=== PATIENT | male | born 1955 | race Caucasian/White ===

== ENCOUNTER 2018-03-05 19:04 | Inpatient (IN) | payer OTHER, MEDICAID ==
[~2018-03-05] VITALS: Ht 170.2 cm; Wt 89.8 kg
[2018-03-05 19:12] VITALS: BP 183/79
[2018-03-05] MEDS ORDERED: NACL 0.9% 1,000 ML IV ONE (19:45)
[2018-03-05] MEDS ORDERED: INSULIN REGULAR, HUMAN 100 UNIT/ML VIAL SUBQ ONE (19:45)
[2018-03-05 20:15] LABS: BASOPHILS # (AUTO) 0.1 K/uL (0.00-0.22); BASOPHILS % (AUTO) 0.5 % (0.0-2.0); EOSINOPHILS # (AUTO) 0.3 K/uL (0-0.4); EOSINOPHILS % (AUTO) 2.6 % (0.0-4.0); HEMATOCRIT 33.8 % (36-52); HEMOGLOBIN 10.9 g/dL (12.0-18.0); LYMPHOCYTES # (AUTO) 1.3 K/uL (2.0-11.5); LYMPHOCYTES % (AUTO) 12.3 % (20.5-51.1); MEAN CORPUSCULAR HEMOGLOBIN 26 pg (27-31); MEAN CORPUSCULAR HGB CONC 32 g/dL (33-37); MEAN CORPUSCULAR VOLUME 80.9 fL (80-94); MONOCYTES # (AUTO) 1.4 K/uL (0.8-1.0); MONOCYTES % (AUTO) 13.8 % (1.7-9.3); NEUTROPHILS # (AUTO) 7.4 K/uL (1.8-7.7); NEUTROPHILS % (AUTO) 70.8 % (42.2-75.2); PLATELET COUNT (AUTO) 192 K/uL (140-450); RED BLOOD CELL COUNT(AUTO) 4.17 MIL/uL (4.20-6.10); RED CELL DISTRIBUTION WIDTH 16.6 % (11.6-13.7); WHITE BLOOD COUNT (AUTO) 10.4 K/uL (4.8-10.8)
[2018-03-05 20:27] LABS: ACETONE, SERUM NEGATIVE (NEGATIVE)
[2018-03-05 20:33] LABS: APPEARANCE,URINE CLEAR (CLEAR); COLOR,URINE YELLOW (YELLOW); PH,URINE 5.5 (5.0-9.0)
[2018-03-05 20:34] LABS: BILIRUBIN,URINE NEGATIVE (NEGATIVE); BLOOD, URINE 2+ (NEGATIVE); LEUKOCYTE ESTERASE ,URINE NEGATIVE (NEGATIVE); NITRITE, URINE NEGATIVE (NEGATIVE); UGLUCOSE 3+ (NEGATIVE)
[2018-03-05 20:44] LABS: CHLORIDE 96 mmol/L (98-107); POTASSIUM 4.5 mmol/L (3.5-5.1); SODIUM SERUM 130 mmol/L (136-145)
[2018-03-05 20:45] LABS: ANION GAP 17.2 (8-16); CARBON DIOXIDE 21.3 mmol/L (21-32)
[2018-03-05] MEDS ORDERED: MORPHINE SULFATE 4 MG/ML SYR IVP ONE (20:45)
[2018-03-05 20:47] LABS: ASPARTATE AMINOTRANSFERASE 12 U/L (15-37); CREATININE 1.8 mg/dL (0.7-1.3); GFR ARICAN-AMERICAN 50 mL/min (>90); GLUCOSE 594 mg/dL (74-106); TOTAL BILIRUBIN 0.4 mg/dL (0.0-1.0); UREA NITROGEN, BLOOD 34 mg/dL (7-18)
[2018-03-05 20:48] LABS: ALBUMIN 3.3 g/dL (3.4-5.0)
[2018-03-05 20:58] LABS: RBC,URINE 3-10 (FEW) /HPF (0-5); WBC,URINE 0-5 (RARE) /HPF (0-5)
[2018-03-05] MEDS ORDERED: INSULIN REGULAR, HUMAN 100 UNIT/ML VIAL SUBQ SCH (21:10)
[2018-03-05] MEDS: NACL 0.9% 1,000 ML IV SCH (22:29)
[2018-03-05] MEDS ORDERED: LORazepam 2 MG/ML VIAL IM/IVP PRN (22:30)
[2018-03-05] MEDS ORDERED: ONDANSETRON 4 MG/2 ML VIAL IM/IVP PRN (22:30)
[2018-03-05] MEDS ORDERED: MORPHINE SULFATE 4 MG/ML SYR IVP PRN (22:30)
[2018-03-05] MEDS ORDERED: ACETAMINOPHEN 325 MG TAB PO PRN (22:30)
[2018-03-05] MEDS ORDERED: DOCUSATE SODIUM 100 MG GELCAP PO PRN (22:30)
[2018-03-05] MEDS ORDERED: ZOLPIDEM 5 MG TAB PO PRN (22:30)
[2018-03-05] MEDS ORDERED: WARF2.5T77 PO (22:32)
[2018-03-05] MEDS ORDERED: METF500T2 PO (22:32)
[2018-03-05] MEDS ORDERED: GLIP5TAB4 PO (22:32)
[2018-03-05] MEDS ORDERED: CHOL300T PO (22:32)
[2018-03-05] MEDS ORDERED: AMLO10TA3 PO (22:32)
[2018-03-05] MEDS ORDERED: LISI30TA6 PO (22:32)
[2018-03-05] MEDS ORDERED: WARF-18 PO (22:32)
[2018-03-05] MEDS ORDERED: AMOX500C25 PO (22:32)
[2018-03-05] MEDS ORDERED: TRA200 PO (22:32)
[2018-03-05] MEDS ORDERED: ASPI81EC97 PO (22:32)
[2018-03-05] MEDS ORDERED: CLON0.2T43 PO (22:32)
[2018-03-05] MEDS ORDERED: FURO-570 PO (22:32)
[2018-03-05] MEDS ORDERED: ECHI1CAP PO (22:32)
[2018-03-05] MEDS ORDERED: DEXTROSE 50% 50 ML SYR IVP PRN (22:35)
[2018-03-05] MEDS ORDERED: ENALAPRILAT 2.5 MG/2 ML VIAL IVP SCH (23:25)
[2018-03-05 23:52] LABS: BARBITURATE, URINE NEGATIVE ng/ml (NEG <=200)
[2018-03-05 23:53] LABS: BENZODIAZEPINE, URINE NEGATIVE ng/mL (NEG <=200); CANNABINOID, URINE NEGATIVE ng/mL (NEG <=50); COCAINE, URINE NEGATIVE ng/mL (NEG <=300); OPIATE, URINE NEGATIVE ng/mL (NEG <=2000); PHENCYCLIDINE SCREEN,URINE NEGATIVE ng/mL (NEG <=25)
[2018-03-05] MEDS: HYDROcodone/APAP 5/325 MG 1 TAB TAB PO PRN (23:53)
[2018-03-06] VITALS: BP 176/82
[2018-03-06 01:29] LABS: MAGNESIUM 1.9 mg/dL (1.8-2.4); PHOSPHORUS 3.1 mg/dL (2.5-4.9)
[2018-03-06 01:30] LABS: FREE T4 (FREE THYROXINE) 1.45 ng/dL (0.76-1.46); THYROID STIMULATING HORMONE 0.58 uIU/mL (0.34-3.74)
[2018-03-06] MEDS ORDERED: FURO-570 PO (03:55)
[2018-03-06] MEDS ORDERED: LISI30TA6 PO (03:55)
[2018-03-06] MEDS ORDERED: ASPI81EC97 PO (03:55)
[2018-03-06] MEDS ORDERED: TRA200 PO (03:55)
[2018-03-06] MEDS ORDERED: AMLO10TA3 PO (03:55)
[2018-03-06] MEDS ORDERED: GLIP5TAB4 PO (03:55)
[2018-03-06] MEDS ORDERED: INSU100S22 SUBQ (03:55)
[2018-03-06] MEDS ORDERED: CLON0.2T43 PO (03:55)
[2018-03-06] MEDS: NACL 0.9% 1,000 ML IV SCH ×2 (05:53→15:49)
[2018-03-06] MEDS: BLOOD GLUCOSE MONITORING 1 DEV DEV FS SCH ×4 (05:55→21:55)
[2018-03-06 07:13] LABS: BASOPHILS # (AUTO) 0.1 K/uL (0.00-0.22); BASOPHILS % (AUTO) 0.6 % (0.0-2.0); EOSINOPHILS # (AUTO) 0.5 K/uL (0-0.4); EOSINOPHILS % (AUTO) 5.3 % (0.0-4.0); HEMATOCRIT 32.7 % (36-52); HEMOGLOBIN 10.6 g/dL (12.0-18.0); LYMPHOCYTES # (AUTO) 1.6 K/uL (2.0-11.5); LYMPHOCYTES % (AUTO) 17.1 % (20.5-51.1); MEAN CORPUSCULAR HEMOGLOBIN 26 pg (27-31); MEAN CORPUSCULAR HGB CONC 32 g/dL (33-37); MEAN CORPUSCULAR VOLUME 80.7 fL (80-94); MONOCYTES # (AUTO) 1.3 K/uL (0.8-1.0); MONOCYTES % (AUTO) 13.5 % (1.7-9.3); NEUTROPHILS # (AUTO) 5.9 K/uL (1.8-7.7); NEUTROPHILS % (AUTO) 63.5 % (42.2-75.2); PLATELET COUNT (AUTO) 180 K/uL (140-450); RED BLOOD CELL COUNT(AUTO) 4.05 MIL/uL (4.20-6.10); RED CELL DISTRIBUTION WIDTH 15.8 % (11.6-13.7); WHITE BLOOD COUNT (AUTO) 9.3 K/uL (4.8-10.8)
[2018-03-06] MEDS ORDERED: MORPHINE SULFATE 4 MG/ML SYR IVP PRN ×2 (07:50→10:50)
[2018-03-06 07:53] VITALS: BP 149/76
[2018-03-06] MEDS ORDERED: NON-FORMULARY ITEM (Metformin HCl* (Glucophage Xr*) 500 MG) PO SCH (09:00)
[2018-03-06] MEDS ORDERED: NON-FORMULARY ITEM (Aspirin (Aspir 81) 81 MG) PO SCH (09:00)
[2018-03-06] MEDS ORDERED: NON-FORMULARY ITEM (Amlodipine Besylate 10 MG) PO SCH (09:00)
[2018-03-06] MEDS ORDERED: LISINOPRIL 10 MG TAB PO SCH (09:00)
[2018-03-06] MEDS: glipiZIDE 5 MG TAB PO SCH (09:25)
[2018-03-06] MEDS: cloNIDine 0.1 MG TAB PO SCH ×2 (09:26→21:55)
[2018-03-06] MEDS: LABETALOL 200 MG TAB PO SCH (09:26)
[2018-03-06] MEDS: LISINOPRIL 20 MG TAB PO SCH (09:26)
[2018-03-06] MEDS: amLODIPine 5 MG TAB PO SCH (09:27)
[2018-03-06] MEDS: FUROSEMIDE 40 MG TAB PO SCH ×2 (09:27→21:54)
[2018-03-06] MEDS: ASPIRIN 81 MG TAB.CHEW PO SCH (09:27)
[2018-03-06 09:40] LABS: ANION GAP 13.3 (8-16); CARBON DIOXIDE 23.4 mmol/L (21-32); CREATININE 1.1 mg/dL (0.7-1.3); POTASSIUM 3.7 mmol/L (3.5-5.1)
[2018-03-06 11:22] LABS: PROTHROMBIN TIME 44.3 secs (10.8-13.4)
[2018-03-06 11:54] LABS: MAGNESIUM 1.6 mg/dL (1.8-2.4); PHOSPHORUS 3.3 mg/dL (2.5-4.9)
[2018-03-06] MEDS: INSULIN LISPRO SLIDING SCALE 100 UNITS/ML VIAL SUBQ PRN (11:58)
[2018-03-06] MEDS ORDERED: INFLUENZA VIRUS VACCINE QUAD 0.5 ML SYR IMVAC PRN (12:25)
[2018-03-06] MEDS ORDERED: PNEUMOCOCCAL VACCINE 23 MCG/0.5 ML VIAL IMVAC SCH (12:25)
[2018-03-06] MEDS: HYDROcodone/APAP 5/325 MG 1 TAB TAB PO PRN (16:59)
[2018-03-06 17:07] VITALS: BP 130/80
[2018-03-06] MEDS ORDERED: INSULIN LANTUS 100 UNITS/ML 10 ML VIAL SUBQ SCH (21:00)
[2018-03-06] MEDS ORDERED: INSULIN GLARGINE HUM REC ANLOG 12 UNIT SUBQ SCH (21:00)
[2018-03-06] MEDS ORDERED: MAGNESIUM OXIDE 400 MG TAB PO ONE (21:15)
[2018-03-07] VITALS: BP 119/63
[2018-03-07] MEDS: LABETALOL 200 MG TAB PO SCH ×3 (01:24→20:46)
[2018-03-07] MEDS: NACL 0.9% 1,000 ML IV SCH ×2 (04:19→13:03)
[2018-03-07] MEDS: BLOOD GLUCOSE MONITORING 1 DEV DEV FS SCH ×4 (05:06→20:43)
[2018-03-07] MEDS: INSULIN LISPRO SLIDING SCALE 100 UNITS/ML VIAL SUBQ PRN ×3 (05:10→21:22)
[2018-03-07 06:37] LABS: BASOPHILS % (AUTO) 0.5 % (0.0-2.0); EOSINOPHILS # (AUTO) 0.5 K/uL (0-0.4); EOSINOPHILS % (AUTO) 5.1 % (0.0-4.0); HEMATOCRIT 31.7 % (36-52); HEMOGLOBIN 10.1 g/dL (12.0-18.0); LYMPHOCYTES # (AUTO) 1.8 K/uL (2.0-11.5); LYMPHOCYTES % (AUTO) 19.4 % (20.5-51.1); MEAN CORPUSCULAR HEMOGLOBIN 26 pg (27-31); MEAN CORPUSCULAR HGB CONC 32 g/dL (33-37); MEAN CORPUSCULAR VOLUME 80.9 fL (80-94); MONOCYTES % (AUTO) 11.4 % (1.7-9.3); NEUTROPHILS # (AUTO) 5.8 K/uL (1.8-7.7); NEUTROPHILS % (AUTO) 63.6 % (42.2-75.2); PLATELET COUNT (AUTO) 186 K/uL (140-450); RED BLOOD CELL COUNT(AUTO) 3.92 MIL/uL (4.20-6.10); RED CELL DISTRIBUTION WIDTH 16.2 % (11.6-13.7); WHITE BLOOD COUNT (AUTO) 9.1 K/uL (4.8-10.8)
[2018-03-07 06:54] LABS: PROTHROMBIN TIME 32.9 secs (10.8-13.4)
[2018-03-07 07:10] LABS: ANION GAP 11.6 (8-16); CARBON DIOXIDE 25.3 mmol/L (21-32); POTASSIUM 3.9 mmol/L (3.5-5.1)
[2018-03-07 07:11] LABS: CREATININE 1.3 mg/dL (0.7-1.3)
[2018-03-07 07:12] LABS: MAGNESIUM 1.7 mg/dL (1.8-2.4); PHOSPHORUS 3.2 mg/dL (2.5-4.9)
[2018-03-07 08:00] VITALS: BP 141/69
[2018-03-07] MEDS: LISINOPRIL 20 MG TAB PO SCH (08:50)
[2018-03-07] MEDS: ASPIRIN 81 MG TAB.CHEW PO SCH (08:50)
[2018-03-07] MEDS: HYDROcodone/APAP 5/325 MG 1 TAB TAB PO PRN ×3 (08:51→20:46)
[2018-03-07] MEDS: FUROSEMIDE 40 MG TAB PO SCH (08:52)
[2018-03-07] MEDS: cloNIDine 0.1 MG TAB PO SCH ×2 (08:52→20:44)
[2018-03-07] MEDS: glipiZIDE 5 MG TAB PO SCH (08:53)
[2018-03-07] MEDS: amLODIPine 5 MG TAB PO SCH (08:53)
[2018-03-07] MEDS ORDERED: MAGNESIUM OXIDE 400 MG TAB PO SCH (09:28)
[2018-03-07 13:19] LABS: CHOL/HDL RATIO 5.9 (1-4.5)
[2018-03-07 15:30] VITALS: BP 131/63
[2018-03-07 16:00] VITALS: BP 134/65
[2018-03-07] MEDS: MAGNESIUM OXIDE 400 MG TAB PO SCH (20:45)
[2018-03-07] MEDS ORDERED: INSULIN LANTUS 100 UNITS/ML 10 ML VIAL SUBQ SCH (21:00)
[2018-03-08] VITALS: BP 111/53
[2018-03-08] MEDS: BLOOD GLUCOSE MONITORING 1 DEV DEV FS SCH ×2 (06:09→12:15)
[2018-03-08] MEDS: INSULIN LISPRO SLIDING SCALE 100 UNITS/ML VIAL SUBQ PRN ×2 (06:14→12:30)
[2018-03-08 07:42] LABS: BASOPHILS % (AUTO) 0.4 % (0.0-2.0); EOSINOPHILS # (AUTO) 0.3 K/uL (0-0.4); EOSINOPHILS % (AUTO) 3.4 % (0.0-4.0); HEMATOCRIT 31.8 % (36-52); HEMOGLOBIN 10.2 g/dL (12.0-18.0); LYMPHOCYTES # (AUTO) 1.3 K/uL (2.0-11.5); LYMPHOCYTES % (AUTO) 13.6 % (20.5-51.1); MEAN CORPUSCULAR HEMOGLOBIN 26 pg (27-31); MEAN CORPUSCULAR HGB CONC 32 g/dL (33-37); MEAN CORPUSCULAR VOLUME 81.1 fL (80-94); MONOCYTES # (AUTO) 0.6 K/uL (0.8-1.0); MONOCYTES % (AUTO) 6.9 % (1.7-9.3); NEUTROPHILS # (AUTO) 7.1 K/uL (1.8-7.7); NEUTROPHILS % (AUTO) 75.7 % (42.2-75.2); PLATELET COUNT (AUTO) 183 K/uL (140-450); RED BLOOD CELL COUNT(AUTO) 3.92 MIL/uL (4.20-6.10); RED CELL DISTRIBUTION WIDTH 15.8 % (11.6-13.7); WHITE BLOOD COUNT (AUTO) 9.4 K/uL (4.8-10.8)
[2018-03-08 08:00] VITALS: BP 146/75
[2018-03-08 08:04] LABS: PROTHROMBIN TIME 17.5 secs (10.8-13.4)
[2018-03-08 08:26] LABS: ANION GAP 12.7 (8-16); CARBON DIOXIDE 23.4 mmol/L (21-32); CREATININE 1.1 mg/dL (0.7-1.3); POTASSIUM 4.1 mmol/L (3.5-5.1)
[2018-03-08 08:35] LABS: MAGNESIUM 1.9 mg/dL (1.8-2.4); PHOSPHORUS 2.5 mg/dL (2.5-4.9)
[2018-03-08] MEDS: LISINOPRIL 20 MG TAB PO SCH (08:53)
[2018-03-08] MEDS: cloNIDine 0.1 MG TAB PO SCH (08:54)
[2018-03-08] MEDS: MAGNESIUM OXIDE 400 MG TAB PO SCH (08:55)
[2018-03-08] MEDS: amLODIPine 5 MG TAB PO SCH (08:56)
[2018-03-08] MEDS: ASPIRIN 81 MG TAB.CHEW PO SCH (08:57)
[2018-03-08] MEDS: glipiZIDE 5 MG TAB PO SCH (08:57)
[2018-03-08] MEDS: LABETALOL 200 MG TAB PO SCH (08:58)
[2018-03-08 10:24] VITALS: BP 132/72
[2018-03-08] MEDS: NACL 0.9% 1,000 ML IV SCH (11:09)
[2018-03-08] MEDS ORDERED: WARFARIN 2.5 MG TAB PO SCH (17:00)
== END 2018-03-08 14:50 | disposition home or self-care (01) | DRG 917 ==
LOC: MED 19:04 → MTU 22:33
PROVIDERS: ADMIT General Practice; ATTEND General Practice
DX: T45.511A Poisoning by anticoagulants, accidental (unintentional), initial encounter (principal); N17.0 Acute kidney failure with tubular necrosis; E44.1 Mild protein-calorie malnutrition; J98.11 Atelectasis; E87.1 Hypo-osmolality and hyponatremia; E11.65 Type 2 diabetes mellitus with hyperglycemia; I16.0 Hypertensive urgency; M17.12 Unilateral primary osteoarthritis, left knee; R31.9 Hematuria, unspecified; I10 Essential (primary) hypertension; E78.5 Hyperlipidemia, unspecified; E66.9 Obesity, unspecified; E83.42 Hypomagnesemia; D64.9 Anemia, unspecified; Z95.2 Presence of prosthetic heart valve; Y92.89 Other specified places as the place of occurrence of the external cause; Z68.31 Body mass index [BMI] 31.0-31.9, adult
CPT/HCPCS: 36415; 71045; 71046; 73562; 76881; 80048; 80053; 80305; 81001; 82009; 82150; 82948; 83036; 83690; 83735; 83880; 84100; 84439; 84443; 84484; 85025; 85610; 85730; 87081; 90658; 90732; 96361; 96372; 96374; 99285; J1815; J2270; J3490; J7030; Q0092

== ENCOUNTER 2018-12-25 20:19 | Emergency (ER) | payer BC, MEDICAID ==
[~2018-12-25] VITALS: Ht 170.2 cm; Wt 90.7 kg
[~2018-12-25 20:19] MED LIST: AMLO10TA3 PO; ASPI81EC97 PO; CHOL300T PO; CLON0.2T43 PO; ECHI1CAP PO; FURO-570 PO; GLIP5TAB4 PO; INSU100S22 SUBQ; LISI30TA6 PO; METF500T2 PO; TRA200 PO; WARF-18 PO
--- NOTE | 2018-12-25 20:24 | NUR ---
PT WHEELCHAIR ASSISTED TO BED 8
[2018-12-25 20:32] VITALS: BP 164/72
[2018-12-25 20:35] VITALS: BP 164/72
--- NOTE | 2018-12-25 20:35 | NUR ---
63 y/o male bib son for right knee pain s/p doing house work yesterday and knee "buckling". swelling to bl feet. pt states pain when bearing weight. a/ox4 and follows commands. right knee swelling noted. pain is a 10/10 stabbing pain upon moving right leg. Non-pitting edema noted ankle bilaterally. skin turgor <3 seconds. +2 pedal pulses noted. Ermd made aware of status. side [id number]. Son at bedside. Will continue to monitor Pmh: htn; high cholesterol; Valve replacement (2014). rx coumadin, metformin, meclizine, norci, asa, glipizide, atrovastatin, amlodipine
--- NOTE | 2018-12-25 20:43 | NUR ---
XRAY AT BEDSIDE
--- NOTE | 2018-12-25 20:43 | NUR ---
RAD AT BEDSIDE.
--- NOTE | 2018-12-25 21:19 | NUR ---
Patient discharged with v/s stable. Written and verbal after care instructions given and explained. DISCHARGED BY DR. KNIGHT. Patient alert, oriented and verbalized understanding of instructions. Ambulatory with steady gait. All questions addressed prior to discharge. ID band removed. Patient advised to follow up with PMD. Rx of TRAMADOL WITH CRUTCHES given. Patient educated on indication of medication including possible reaction and side effects. Opportunity to ask questions provided and answered.
== END 2018-12-25 21:19 | disposition home or self-care (01) ==
LOC: MED 20:19
DX: S83.91XA Sprain of unspecified site of right knee, initial encounter (principal); E11.9 Type 2 diabetes mellitus without complications; I10 Essential (primary) hypertension; I25.10 Atherosclerotic heart disease of native coronary artery without angina pectoris; E78.5 Hyperlipidemia, unspecified; Z95.1 Presence of aortocoronary bypass graft; Z79.4 Long term (current) use of insulin; Z79.899 Other long term (current) drug therapy; Z79.82 Long term (current) use of aspirin; X58.XXXA Exposure to other specified factors, initial encounter; Y93.89 Activity, other specified; Y92.009 Unspecified place in unspecified non-institutional (private) residence as the place of occurrence of the external cause; Y99.8 Other external cause status
CPT/HCPCS: 73560; 99283; Q0092